=== PATIENT | male | born 1995 | race African-American/Black ===

== ENCOUNTER 2017-11-22 05:18 | Emergency (ER) | payer SELFPAY ==
[~2017-11-22] VITALS: Ht 190.5 cm; Wt 104.0 kg
[2017-11-22] MEDS ORDERED: IBUPROFEN 600MG TABLET PO ONE (07:00)
[2017-11-22 08:30] VITALS: BP 129/66
[2017-11-22] MEDS ORDERED: ACETAMINOPHEN 325MG TABLET PO ONE (08:30)
== END 2017-11-22 09:09 | disposition home or self-care (01) ==
LOC: ER 05:18
DX: M25.571 Pain in right ankle and joints of right foot (principal); W01.0XXA Fall on same level from slipping, tripping and stumbling without subsequent striking against object, initial encounter; Y93.41 Activity, dancing; Y92.018 Other place in single-family (private) house as the place of occurrence of the external cause; Z59.0 Homelessness
CPT/HCPCS: 73610; 73630; 99284; Z7610